=== PATIENT | male | born 1990 | race Two or more races ===

== ENCOUNTER 2021-12-23 18:05 | Emergency (ER) | payer OTHER ==
[~2021-12-23] VITALS: Ht 195.6 cm; Wt 95.3 kg
[2021-12-23] MEDS ORDERED: TRINTELLIX20 MG PO (18:11)
[2021-12-23] MEDS ORDERED: CLONAZEPAM1 M1 PO (18:12)
== END 2021-12-23 18:49 | disposition home or self-care (01) ==
LOC: ER 18:05
DX: Z76.0 Encounter for issue of repeat prescription (principal)